=== PATIENT | female | born 1990 | race Caucasian/White ===

== ENCOUNTER 2018-12-19 07:56 | Inpatient (IN) | payer BC ==
[2018-12-19] MEDS ORDERED: Lactated Ringers 1000 ML Bag* 1,000 ML IV ONE (08:19)
[2018-12-19] MEDS ORDERED: Buffered Lidocaine 1% SYRIN* 1 ML/SYRINGE INTRADERM ONE (08:19)
[2018-12-19] MEDS: Misoprostol TAB* 100 MCG PO SCH ×3 (09:02→23:04)
--- NOTE | 2018-12-19 09:09 | PTEDU ---
Patient Name: KO DOUGLASS KO DOUGLASS selected video: Never Ever Shake a Baby to view on 12/19/2018 at 9:09:11 AM from [facility] [id number]
[2018-12-19 09:56] LABS: Urine Benzodiazepine Screen None Detected (None Detect); Urine Opiates Screen None Detected (None Detect)
--- NOTE | 2018-12-19 13:43 | HP ---
General Information - Reason for Visit induction - General Information Maternal Age: 28 Grav: 1 Para: 0 SAB: 0 IEA: 0 Estimated Due Date: 12/15/18 Determined By: LMP Maternal Blood Type and Rh: O Positive - Results this Serology/RPR Result: Non-Reactive Rubella Result: Immune HBsAg Result: Negative HIV Result: Negative GBS Culture Result: Negative Past Medical History Pertinent Past Medical History: See Records Pertinent Past Surgical History: See Records Pertinent Family History: See Records - Antepartal Records Antepartal Records: Reviewed, Complicated by: - hypothyroidism Review of Systems Constitutional: Comfortable CV Complaint: No Respiratory: Shortness of Breath: No Gastrointestinal: No Nausea/Vomiting, Normal Bowel Movement Genitourinary: No Dysuria, No Bleeding, No Leaking Fluid Musculoskeletal: No Complaint Neurological: No Headache Movement: Normal Exam Allergies/Adverse Reactions: Allergies No Known Allergies Allergy (Verified 10/21/18 02:58) Vital Signs 12/19/18 08:00 Temperature 98.5 F Pulse Rate 87 Respiratory 18 Rate Blood Pressure 137/81 (mmHg) O2 Sat by Pulse 99 Oximetry Lab Values - Entire Visit: Laboratory Tests 12/19/18 08:20 Urine Opiates Screen None detected Ur Barbiturates Screen None detected Ur Phencyclidine Scrn None detected Ur Amphetamines Screen None detected U Benzodiazepines Scrn None detected Urine Cocaine Screen None detected U Cannabinoids Screen None detected - Measurements Height: 5 ft 4 in Weight: 234 lb Weight in lbs: 234.069395 Body Mass Index (BMI): 40.1 Pre- Weight: 190 lb Weight Gained This : 44 lbs and 0 ozs - Exam Breast: Breast Exam Deferred Extremities: No Edema Heart: Normal Rhythm/Heart Sounds HEENT: No Significant Findings - Abdominal Exam Abdomen Exam: Non-Tender - Ultrasound/Biophysical Profile Ultrasound Status: Not Done Targeted Exam Findings Cervical Exam: 1cm - by RN Membrane Status: Intact EFM Findings - External Monitor Findings Baseline Heart Rate: 135 External Monitor Findings: Accelerations Present, No Pattern of Variable or Late Decelerations, Variability Moderate, Baseline Stable Contractions: Irregular Assessment/Plan - Assessment @40.4wks here for induction @term. - Plan Plan: Induction, Cervical Ripening, Admit - Anticipate Vaginal Delivery - Date/Time of Admission Date of Admission: 12/19/18
[2018-12-19] MEDS: Nalbuphine* 10 MG/ML 1 ML VIAL IM PRN (23:19)
[2018-12-19] MEDS: Promethazine INJ(RESTRICTED)* 25 MG/ML 1 ML VIAL IM PRN (23:19)
[2018-12-20] MEDS ORDERED: Misoprostol TAB* 100 MCG PO ONE (07:55)
[2018-12-20] MEDS: Oxytocin in LR* 20 UNITS/1,000 ML BAG IVPB SCH (14:56)
[2018-12-20 15:13] LABS: ABS Basophils 0.1 10^3/ul (0-0.2); ABS Eosinophils 0.3 10^3/ul (0-0.6); ABS Lymphocytes 2.7 10^3/ul (1.0-4.8); ABS Monocytes 0.6 10^3/ul (0-0.8); ABS Neutrophils 9.8 10^3/ul (1.5-7.7); Hematocrit 36 % (35-47); Hemoglobin 11.9 g/dL (12.0-16.0); Lymphocyte % 20.4 %; Mean Corpuscular HGB Conc 33 g/dL (31-36); Mean Corpuscular Hemoglobin 30 pg (27-31); Mean Corpuscular Volume 89 fL (80-97); Nucleated Red Blood Cells % 0.1; Platelet Count 164 10^3/uL (150-450); Red Blood Count 4.03 10^6 /uL (3.70-4.87); Red Cell Distribution Width 14 % (10-15); White Blood Count 13.5 10^3/uL (3.5-10.8)
[2018-12-20] MEDS: Nalbuphine* 10 MG/ML 1 ML VIAL IM PRN (23:22)
[2018-12-20] MEDS: Promethazine INJ(RESTRICTED)* 25 MG/ML 1 ML VIAL IM PRN (23:22)
[2018-12-21] MEDS: Lactated Ringers 1000 ML Bag* 1,000 ML IV SCH (10:30)
[2018-12-21] MEDS: Oxytocin in LR* 20 UNITS/1,000 ML BAG IVPB SCH (10:30)
[2018-12-21] MEDS ORDERED: OBEPIDURAL* 250 ML EPIDURAL ONE (16:56)
[2018-12-21] MEDS ORDERED: EPHEDrine (Pressors)* 50 MG/ML VIAL IV PUSH PRN ×2 (17:38)
[2018-12-21] MEDS ORDERED: Sodium Citrate/Citric Acid* 15 ML UDC PO PRN (17:38)
[2018-12-21] MEDS ORDERED: Famotidine TAB* 20 MG PO PRN (17:38)
[2018-12-21] MEDS ORDERED: Lactated Ringers 1000 ML Bag* 1,000 ML IV ONE (17:38)
[2018-12-21] MEDS ORDERED: Phenylephrine 40 MCG/ML SYRINGE IV PUSH PRN ×2 (17:38)
[2018-12-21] MEDS ORDERED: Lactated Ringers 1000 ML Bag* 1,000 ML IV SCH (18:00)
[2018-12-21] MEDS ORDERED: OBEPIDURAL* 250 ML EPIDURAL SCH (18:00)
[2018-12-22] MEDS: Lactated Ringers 1000 ML Bag* 1,000 ML IV SCH (06:57)
[2018-12-22] MEDS ORDERED: OBEPIDURAL* 250 ML EPIDURAL ONE (07:13)
[2018-12-22] MEDS: Levothyroxine TAB* 125 MCG TAB PO SCH (07:48)
[2018-12-22] MEDS ORDERED: ceFOXitin 2 GM IVPREMIX* 2 GM/50 ML BAG ONE (09:36)
--- NOTE | 2018-12-22 10:11 | PN ---
Progress Note - Progress Note Date of Service: 12/22/18 Note: S: Pt is tearful. She is ready for labor to be over. She is comfortable; CEI infusing. O: VSS FHR 140, moderate variability Contractions every 6-8 minutes VE: 8.5/100/-1, +bloody show A: VSS No evidence of metabolic acidemia No cervical change Contractions mild, spaced P: PARQ discussion about restarting Pitocin vs operative delivery. Pt opting for operative delivery at this point. Discussed case with Rosanne Moreno MD. MD to bedside to consent pt for operative delivery. Anesthesia and NICU aware.
[2018-12-22] MEDS ORDERED: Phenylephrine 40 MCG/ML SYRINGE ONE (10:12)
[2018-12-22] MEDS ORDERED: EPHEDrine (Pressors)* 50 MG/ML VIAL ONE (10:12)
[2018-12-22] MEDS ORDERED: OXYTOCIN* 10 UNITS/ML 1 ML VIAL ONE (10:54)
[2018-12-22] MEDS ORDERED: Ketorolac INJ* 30 MG/ML 1 ML VIAL IV PRN (10:56)
[2018-12-22] MEDS ORDERED: HYDROcodone/ACETAMIN 5-325 MG* 1 TAB PO PRN (10:56)
[2018-12-22] MEDS ORDERED: Acetaminophen TAB* 325 MG PO PRN ×2 (10:56→11:54)
[2018-12-22] MEDS ORDERED: Ondansetron INJ* 2 MG/ML VIAL IV PRN (10:56)
[2018-12-22] MEDS ORDERED: DiMENhydriNATE IV* 50 MG/ML VIAL IV PUSH PRN (10:56)
[2018-12-22] MEDS ORDERED: Naloxone* 0.4 MG/ML 1 ML VIAL IV PRN (10:56)
[2018-12-22] MEDS ORDERED: HYDROmorphone INJ1* 1 MG/ML SYRINGE IV PRN (10:56)
[2018-12-22] MEDS ORDERED: fentaNYL* 50 MCG/ML 2 ML VIAL (100 MCG VIAL) IV PRN (10:56)
[2018-12-22] MEDS ORDERED: Ondansetron INJ* 2 MG/ML VIAL ONE (11:08)
[2018-12-22] MEDS ORDERED: Midazolam* 1 MG/ML 2 ML VIAL (2 MG) ONE (11:09)
[2018-12-22] MEDS ORDERED: Ketorolac INJ* 30 MG/ML 1 ML VIAL ONE ×2 (11:50→18:26)
[2018-12-22] MEDS ORDERED: Witch Hazel PAD* JAR TOPICAL PRN (11:54)
[2018-12-22] MEDS ORDERED: Dibucaine 1% 28.35 GM TUBE PR PRN (11:54)
[2018-12-22] MEDS ORDERED: oxyCODONE/Acetamin 5/325 MG* TAB PO PRN ×2 (11:54)
[2018-12-22] MEDS ORDERED: Glycerin ADULT SUPP PR PRN (11:54)
[2018-12-22] MEDS ORDERED: Lactated Ringers 1000 ML Bag* 1,000 ML IV SCH (12:00)
[2018-12-22] MEDS ORDERED: Oxytocin in LR* 20 UNITS/1,000 ML BAG IVPB SCH (12:00)
[2018-12-22] MEDS: Docusate CAP* 100 MG PO SCH ×2 (14:29→21:54)
[2018-12-22] MEDS: Simethicone TAB* 80 MG TAB.CHEW PO SCH ×3 (14:29→21:53)
--- NOTE | 2018-12-22 14:48 | OP ---
OPERATIVE SURGERY: DATE OF OPERATION: 12/22/18 DATE OF : 88 SURGEON: Dr. Flor Moreno. WAREHOUSE OPERATIONS ASSOCIATE: Dr. Mandel. ANESTHESIA: Spinal. 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 POST-OP DIAGNOSIS: Arrest disorder at 41 and 0/7 week. OPERATIVE PROCEDURE: Primary low transverse section. ESTIMATED BLOOD LOSS: 600 cc. URINE OUTPUT: 150 cc of blood-tinged urine with clearing in the tubing. FLUIDS: 1600 cc of crystalloid. FINDINGS: Revealed a vertex female , tight nuchal cord x2, no meconium. Apgars were 9 at 1 min gokul and 9 at 5 minutes. Weight was 8 pounds 6 ounces. Normal appearing tubes and ovaries bilaterally . Normal uterine cavity without evidence of retained membranes or placental tissue. Normal appearin g placenta, 3- vessel cord, manually extracted, intact. COMPLICATIONS: None apparent. DISPOSITION: Stable to recovery room. DESCRIPTION OF PROCEDURE: The patient was placed in dorsal lithotomy position. The abdomen was prepp ed and draped in a sterile standard fashion. The patent was identified with universal protocol for c orrect procedure, patient and position. After confirming excellent level of anesthesia an incision wa s made 2 fingerbreadths above the pubic symphysis. This was carried down through to the fascia. Fas brijesh was scored in the midline. Fascial incision was extended laterally and superiorly using Khan sci ssors. The fascia was sharply and bluntly from the rectus muscle both superiorly and infer iorly. The peritoneum was then entered bluntly. The peritoneal incision was extended bluntly. Blad alcon blade was inserted. A moist laparotomy sponge was inserted in the right cul-de-sac. The lower u terine segment was identified, tented up with an Allis. Incision was made with a scalpel. This was carried down to the membranes. The incision was extended laterally and superiorly using bandage scis sors. The infant was delivered and noted to be ROT. Tight nuchal cord was reduced x2. Anterior and posterior shoulders delivered. The cord was milked and at one minute the cord was then clamped and cut and the was handed off to the awaiting sprinkler truck driver. Appropriate cord blood was then obta ined. The placenta was then manually extracted and noted to be 3-vessel cord intact. The uterine ca vity was explored twice and noted to be free of any membranes or placental tissue. The uterine incis ion itself was reapproximated using 2-0 Vicryl x2, first layer of running locked, second layer of run merrill imbricated. Tubes and ovaries were noted to have a normal appearance. The uterus was returned i ntraabdominally. The right colic gutter sponge was removed, lavage was performed, and hemostasis was assured in the hysterotomy site. Two [id number] stitches were placed in the midline to confirm and confer hemostasis. Colic gutters were lavaged. Hemostasis again was reassured at the hysterotom y site and the peritoneum was then clamped with Olivia and the peritoneum was reapproximated using 3-0 Vicryl x1 in a running fashion. Subfascial area was lavaged. Hemostasis assured and the fascia its elf was then reapproximated using 0 Vicryl x2 in a running fashion. Subcu was lavaged. Hemostasis a ssured and a subcuticular fat stitch was placed using 3-0 Vicryl in an interrupted fashion. The skin itself was then reapproximated using 4-0 Monocryl in a subcuticular fashion. Mastisol and then Steri s were placed. All sponge, needle, instrument, and blade counts were correct throughout the case. T he patient tolerated the procedure well and went to recovery room in stable condition. [id number]/[facility] #: [id number]
[2018-12-22] MEDS: oxyCODONE/Acetamin 5/325 MG* TAB PO PRN ×2 (15:28→21:53)
[2018-12-22] MEDS: Ketorolac INJ* 30 MG/ML 1 ML VIAL IV SCH (18:31)
[2018-12-23] MEDS: Ketorolac INJ* 30 MG/ML 1 ML VIAL IV SCH (00:47)
[2018-12-23] MEDS: oxyCODONE/Acetamin 5/325 MG* TAB PO PRN ×5 (02:16→22:09)
[2018-12-23] MEDS: Ibuprofen TAB* 600 MG PO PRN ×3 (06:00→18:09)
[2018-12-23] MEDS: Levothyroxine TAB* 125 MCG TAB PO SCH (06:00)
[2018-12-23 06:52] LABS: ABS Basophils 0.1 10^3/ul (0-0.2); ABS Eosinophils 0.2 10^3/ul (0-0.6); ABS Lymphocytes 2.1 10^3/ul (1.0-4.8); ABS Monocytes 0.8 10^3/ul (0-0.8); ABS Neutrophils 11.2 10^3/ul (1.5-7.7); Eosinophil % 1.1 %; Hematocrit 27 % (35-47); Hemoglobin 9.3 g/dL (12.0-16.0); Lymphocyte % 14.6 %; Mean Corpuscular HGB Conc 34 g/dL (31-36); Mean Corpuscular Hemoglobin 30 pg (27-31); Mean Corpuscular Volume 87 fL (80-97); Mean Platelet Volume 9.5 fL (7.4-10.4); Platelet Count 144 10^3/uL (150-450); Red Cell Distribution Width 14 % (10-15); White Blood Count 14.2 10^3/uL (3.5-10.8)
[2018-12-23] MEDS: Simethicone TAB* 80 MG TAB.CHEW PO SCH ×4 (09:00→21:36)
[2018-12-23] MEDS: Ferrous Gluconate TAB* 324 MG TAB PO SCH ×2 (09:00→21:36)
[2018-12-23] MEDS: Docusate CAP* 100 MG PO SCH ×3 (09:02→21:36)
[2018-12-24] MEDS: Ibuprofen TAB* 600 MG PO PRN ×3 (00:50→18:21)
[2018-12-24] MEDS: Levothyroxine TAB* 125 MCG TAB PO SCH (06:08)
[2018-12-24] MEDS: Simethicone TAB* 80 MG TAB.CHEW PO SCH ×4 (07:57→20:48)
[2018-12-24] MEDS: Ferrous Gluconate TAB* 324 MG TAB PO SCH ×2 (07:58→20:47)
[2018-12-24] MEDS: oxyCODONE/Acetamin 5/325 MG* TAB PO PRN ×3 (07:58→21:00)
[2018-12-24] MEDS: Docusate CAP* 100 MG PO SCH ×3 (07:58→20:48)
[2018-12-25] MEDS: Levothyroxine TAB* 125 MCG TAB PO SCH (06:04)
[2018-12-25] MEDS: Ibuprofen TAB* 600 MG PO PRN (06:07)
[2018-12-25 09:08] VITALS: BP 135/75
[2018-12-25] MEDS: Docusate CAP* 100 MG PO SCH (09:35)
[2018-12-25] MEDS: Simethicone TAB* 80 MG TAB.CHEW PO SCH (09:35)
[2018-12-25] MEDS: Ferrous Gluconate TAB* 324 MG TAB PO SCH (09:35)
== END 2018-12-25 11:45 | disposition home or self-care (01) | DRG 540 ==
LOC: MCHOBOUT 07:56 → MCHOB 08:15
PROVIDERS: ADMIT Obstetrics & Gynecology; ATTEND Obstetrics & Gynecology
PROC: 10907ZC Drainage of Amniotic Fluid, Therapeutic from Products of Conception, Via Natural or Artificial Opening (ICD-10-PCS; 2018-12-22)
PROC: 4A1HXCZ Monitoring of Products of Conception, Cardiac Rate, External Approach (ICD-10-PCS; 2018-12-22)
PROC: 10D00Z1 Extraction of Products of Conception, Low, Open Approach (ICD-10-PCS; principal; 2018-12-22 10:23)
DX: O48.0 Post-term pregnancy (principal); O99.284 Endocrine, nutritional and metabolic diseases complicating childbirth; E03.9 Hypothyroidism, unspecified; O99.214 Obesity complicating childbirth; G89.29 Other chronic pain; O75.89 Other specified complications of labor and delivery; M54.5 Low back pain; O62.1 Secondary uterine inertia; O90.81 Anemia of the puerperium; O69.1XX0 Labor and delivery complicated by cord around neck, with compression, not applicable or unspecified; Z3A.40 40 weeks gestation of pregnancy; Z37.0 Single live birth
CPT/HCPCS: 36415; 80307; 85025; 86850; 86900; 86901; A9270-GY; J0694; J1885; J2250; J2300; J2405; J2550; J2590; S0191